=== PATIENT | female | born 2000 | race African-American/Black ===

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

== ENCOUNTER 2020-03-09 14:37 | Emergency (ER) | payer OTHER ==
[~2020-03-09] VITALS: Ht 167.6 cm; Wt 127.0 kg
[~2020-03-09 14:37] MED LIST changes: +NAPROSYN500 MG PO; +NEOMYCIN-POLY-7.5 ML OPHTHALMIC
[2020-03-09] MEDS ORDERED: ZYRTEC10 M5 PO (15:14)
[2020-03-09] MEDS ORDERED: PROAIR HFA8.5 GM INH (15:14)
[2020-03-09 16:05] VITALS: BP 104/80
== END 2020-03-09 16:05 | disposition home or self-care (01) ==
LOC: ER 14:37
DX: J45.901 Unspecified asthma with (acute) exacerbation (principal); Z20.828 Contact with and (suspected) exposure to other viral communicable diseases; J30.2 Other seasonal allergic rhinitis; E66.01 Morbid (severe) obesity due to excess calories; F17.210 Nicotine dependence, cigarettes, uncomplicated; Z91.010 Allergy to peanuts

== ENCOUNTER 2020-09-05 19:37 | Emergency (ER) | payer OTHER ==
[~2020-09-05] VITALS: Ht 165.1 cm; Wt 108.9 kg
[~2020-09-05 19:37] MED LIST changes: +PROAIR HFA8.5 GM INH; +ZYRTEC10 M5 PO
[2020-09-05 20:00] LABS: URINE BILIRUBIN NEGATIVE (Negative); URINE BLOOD 2+ (Negative); URINE CLARITY CLEAR; URINE COLOR YELLOW; URINE GLUCOSE-RANDOM* NEGATIVE (Negative); URINE KETONES NEGATIVE (Negative); URINE LEUKOCYTES-REFLEX NEGATIVE (Negative); URINE NITRITE-REFLEX NEGATIVE (Negative); URINE PROTEIN (DIPSTICK) TRACE (Negative); URINE SPECIFIC GRAVITY 1.015 (1.005-1.035)
[2020-09-05 20:12] LABS: MUCUS 4-6 Moderate strn/LPF (None Seen); SQUAMOUS 4-10 Moderate /LPF (0-3)
[2020-09-05 20:13] LABS: CASTS None Seen /LPF (None Seen); CRYSTALS None Seen /LPF (None Seen); URINE RBC 0-2 Rare /HPF (0-2); URINE WBC-REFLEX 0-5 Rare /HPF (0-5)
[2020-09-05 20:14] LABS: BACTERIA-REFLEX 1-9 Few /HPF (None Seen)
[2020-09-05 21:07] LABS: ABSOLUTE NEUTROPHILS 2.8 thou/uL (1.4-8.2); BASOPHILS 1.2 % (0.0-2.0); EOSINOPHILS 0.8 % (0.0-3.0); HEMATOCRIT 41.2 % (37.0-47.0); HEMOGLOBIN 13.4 gm/dL (12.0-15.0); LYMPHOCYTES 23.2 % (24.0-44.0); MCH 27.8 pg (26.0-34.0); MCHC 32.5 g/dL (28.0-37.0); MCV 85.6 fL (80.0-100.0); MONOCYTES 7.2 % (1.0-8.0); POLYS 67.6 % (36.0-66.0); RBC 4.81 mil/uL (4.20-5.00); RDW 14.2 % (10.5-14.5); WBC 4.2 thou/uL (4.0-11.0)
[2020-09-05 21:15] LABS: CALCIUM 8.7 mg/dL (8.5-10.1); CREATININE 0.9 mg/dL (0.6-1.0); POTASSIUM 3.6 mmol/L (3.5-5.1)
[2020-09-05 21:21] LABS: ALBUMIN 3.5 g/dL (3.4-5.0); TOTAL BILIRUBIN 0.5 mg/dL (0.2-1.0); TOTAL PROTEIN 7.2 g/dL (6.4-8.2)
[2020-09-05] MEDS ORDERED: ONDANSETRON HCL4 M2 PO (21:29)
[2020-09-05 21:50] VITALS: BP 121/71
[2020-09-05 22:00] LABS: PLATELET COUNT 130 thou/uL (150-400)
== END 2020-09-05 21:52 | disposition home or self-care (01) ==
LOC: ER 19:37
PROVIDERS: Emergency Medicine; Nurse Practitioner
DX: R10.2 Pelvic and perineal pain (principal); J45.909 Unspecified asthma, uncomplicated; F17.210 Nicotine dependence, cigarettes, uncomplicated; Z79.899 Other long term (current) drug therapy; Z91.010 Allergy to peanuts

== ENCOUNTER 2021-05-29 09:29 | Emergency (ER) | payer OTHER ==
[~2021-05-29] VITALS: Ht 165.1 cm; Wt 133.8 kg
[~2021-05-29 09:29] MED LIST changes: +ONDANSETRON HCL4 M2 PO
[2021-05-29] MEDS ORDERED: PREDNISONE 10 M10 MG PO (11:46)
[2021-05-29] MEDS ORDERED: PROAIR HFA8.5 GM INH (11:46)
[2021-05-29 12:07] VITALS: BP 173/78
--- NOTE | 2021-05-30 07:41 | EKG ---
[address] [place] [address] ELECTROCARDIOGRAM REPORT Name: HERNAN HARTMAN Room #: [facility]#: [id number] Admission: 05/29/21 Attend Phys: Discharge: 05/29/21 Date of : [birth year] Report #: [id number] [facility] ED Test Date: 2021-05-29 Test Time: 09:45:03 Pat Name: HERNAN HARTMAN Department: Room: Gender: F [employer] Operator: DHARA : 2000 Requested By: Yazmin Nicole Order Number: [id number] MD: Kirill Alonso Measurements Intervals [place] Rate: 80 P: 64 NV: 149 QRS: 50 QRSD: 79 T: 1 QT: 337 QTc: 389 Interpretive Statements Sinus arrhythmia No significant abnormality Compared to ECG 07/17/2017 07:23:13 No change Electronically Signed On 05-30-2021 7:40:54 AD TRAFFICKER by Kirill Alonso [email or web address] <ELECTRONICALLY SIGNED> By: Kirill Alonso MD, [facility] 05/30/21 0740 0945 0945 Kirill Alonso MD, FACC /EPI
== END 2021-05-29 12:07 | disposition home or self-care (01) ==
LOC: ER 09:29
DX: J06.9 Acute upper respiratory infection, unspecified (principal); Z20.822 Contact with and (suspected) exposure to COVID-19; J45.901 Unspecified asthma with (acute) exacerbation; F17.210 Nicotine dependence, cigarettes, uncomplicated; E66.01 Morbid (severe) obesity due to excess calories; Z91.010 Allergy to peanuts; Z79.899 Other long term (current) drug therapy